=== PATIENT | male | born 2000 | race Caucasian/White ===

== ENCOUNTER 2018-05-29 21:15 | Emergency (ER) | END 2018-05-29 22:13 | disposition left against medical advice (07) ==

== ENCOUNTER 2018-05-30 05:43 | Emergency (ER) | END 2018-05-30 07:25 | disposition home or self-care (01) ==

== ENCOUNTER 2018-11-26 05:48 | Day surgery (SDC) | payer OTHER ==
[2018-11-23 15:43] VITALS: Ht 177.8 cm; Wt 95.5 kg
[~2018-11-26] VITALS: Ht 177.8 cm; Wt 95.5 kg
[2018-11-26] VITALS (13 sets, daily range): BP systolic 123–152; BP diastolic 57–89; PULSE 78–94; RESP 12–22
[~2018-11-26 05:48] MED LIST: NAPR-985 PO
[2018-11-26] MEDS ORDERED: ROPIVACAINE 0.5 % 30 ML VIAL ONE (06:55)
[2018-11-26] MEDS ORDERED: LIDOCAINE 1% (MPF) 30 ML INJ ONE (06:55)
[2018-11-26] MEDS ORDERED: BACITRACIN/POLYMYXIN 28.35 GM OINT TOP ONE (06:56)
[2018-11-26] MEDS ORDERED: morphine SULFATE/PF (10 MG/10 ML) INJ ONE (06:56)
--- NOTE | 2018-11-26 07:24 | PREAC ---
Date/Time of Note Date/Time of Note DATE: 11/26/18 TIME: 07:23 Anesthesia Eval and Record Evaluation Time Pre-Procedure Interview DATE: 11/26/18 TIME: 07:23 Age 18 Sex male NPO: 8 hrs Preoperative diagnosis left knee meniscus tear Planned procedure left knee arthroscopy and meniscus repair vs meniscectomy Past Medical History Past Medical History: None Surgery & Anesthesia Issues No known issue Meds Anticoagulation: No Beta Lilliana within 24 hr: No Reason Beta Lilliana not given: Pt. not on B-Lilliana Active Scripts Naproxen* (Naprosyn*) 500 Mg Tablet, 500 MG PO BID PRN for PAIN AND/OR INFLAMMATION, #30 TAB Prov:NOELLE HOGAN PA-C 05/30/18 Meds reviewed: Yes Allergies Coded Allergies: No Known Drug Allergy (Verified Allergy, Unknown, 05/30/18) Allergies Reviewed: Yes Labs/Studies Labs Reviewed: Reviewed by anesthesiologist test: N/A Pre-procedure Exam Last vitals Vital Signs Date Temp Pulse Resp B/P (MAP) Pulse Ox O2 O2 Flow FiO2 Time Delivery Rate 11/26/18 99.1 20 136/76 98 Room Air 07:04 (96) Airway: Adequate mouth opening, Adequate thyromental dist Mallampati: Mallampati II Teeth: Normal Lung: Normal Heart: Normal ASA Physical Status ASA physical status: 1 Emergency: None Planned Anesthetic General/MAC: ETT Planned Pain Management Parenteral pain med Pre-operative Attestations Prior to commencing anesthesia and surgery, the patient was re-evaluated, there was verification of: *The patient's identity *The results of appropriate recent lab work and preoperative vital signs *The above evaluation not changing prior to induction *Anesthetic plan, risk benefits, alternative and complications discussed with patient/family; questions answered; patient/family understands, accepts and wishes to proceed. Eduardo Joshua M.D. Nov 26, 2018 07:24
[2018-11-26] MEDS ORDERED: ROCURONIUM 50 MG INJ ONE (07:30)
[2018-11-26] MEDS ORDERED: PROPOFOL 20 ML ONE (07:30)
[2018-11-26] MEDS ORDERED: FENTAnyl 50 MCG/ML VIAL IV PRN ×3 (07:30)
[2018-11-26] MEDS ORDERED: ONDANSETRON 4 MG INJ IV PRN (07:30)
[2018-11-26] MEDS ORDERED: HYDROmorphONE 1 MG/5 ML IV SYRINGE IV PRN ×3 (07:30)
[2018-11-26] MEDS ORDERED: IPRATROPIUM (NEB) 0.5 MG/2.5 ML AMP HHN PRN (07:30)
[2018-11-26] MEDS ORDERED: MIDAZOLAM 1 MG/ML 2 ML INJ IV PRN (07:30)
[2018-11-26] MEDS ORDERED: OXYCODONE/ACETAMINOPHEN (5/325) TAB PO PRN ×2 (07:30)
[2018-11-26] MEDS ORDERED: CEFAZOLIN 1 GM INJ ONE (07:30)
[2018-11-26] MEDS ORDERED: MEPERIDINE 25 MG INJ IV PRN (07:30)
[2018-11-26] MEDS ORDERED: LABETALOL HCL 20MG INJ IV PRN (07:30)
[2018-11-26] MEDS ORDERED: DIPHENHYDRAMINE 50 MG INJ IV PRN (07:30)
[2018-11-26] MEDS ORDERED: GLYCOPYRROLATE 0.4 MG INJ ONE ×2 (07:30→08:47)
[2018-11-26] MEDS ORDERED: TRIMETHOBENZAMIDE 100 MG/ML VIAL IM PRN (07:30)
[2018-11-26] MEDS ORDERED: ALBUTEROL 0.083% (NEB) 2.5 MG/3 ML AMP HHN PRN (07:30)
[2018-11-26] MEDS ORDERED: hydrALAzine 20 MG INJ IV PRN (07:30)
[2018-11-26] MEDS ORDERED: EPHEDrine SULFATE 50 MG/5 ML SYG IV PRN (07:30)
[2018-11-26] MEDS ORDERED: MIDAZOLAM 1 MG/ML 2 ML INJ ONE (07:32)
[2018-11-26] MEDS ORDERED: ONDANSETRON 4 MG INJ ONE (07:32)
[2018-11-26] MEDS ORDERED: FENTAnyl 50 MCG/ML VIAL ONE ×2 (07:32→08:14)
[2018-11-26] MEDS ORDERED: DEXAMETHASONE 4 MG/ML 5 ML INJ ONE (07:32)
--- NOTE | 2018-11-26 07:44 | HPN ---
Date/Time of Note Date/Time of Note DATE: 11/26/18 TIME: 07:44 Interval H&P Admission Note Pt. seen H&P reviewed: No system changes RAEANN KEARNEY MD Nov 26, 2018 07:44
[2018-11-26] MEDS ORDERED: morphine 2 MG INJ IV PRN (08:00)
[2018-11-26] MEDS ORDERED: NEOSTIGMINE 10 MG INJ ONE (08:47)
[2018-11-26] MEDS ORDERED: KETOROLAC 30 MG INJ ONE (09:00)
--- NOTE | 2018-11-26 09:28 | PAC ---
Date/Time of Note Date/Time of Note DATE: 11/26/18 TIME: 09:28 Post-Anesthesia Notes Post-Anesthesia Note Last documented vital signs Vital Signs Date Temp Pulse Resp B/P (MAP) Pulse Ox O2 O2 Flow FiO2 Time Delivery Rate 11/26/18 99.1 20 136/76 98 Room Air 08:28 (96) Activity: WNL Respiratory function: WNL Cardiovascular function: WNL Mental status: Baseline Pain reasonably controlled: Yes Hydration appropriate: Yes Nausea/Vomiting absent: Yes Eduardo Joshua M.D. Nov 26, 2018 09:28
--- NOTE | 2018-11-26 09:34 | OPR ---
Date/Time of Note Date/Time of Note DATE: 11/26/18 TIME: 09:22 Operative Report Procedure Date: Nov 26, 2018 Preoperative Diagnosis Left knee lateral meniscal tear Postoperative Diagnosis Left knee lateral meniscal tear Operation/Procedure Performed Left knee arthroscopy with lateral meniscal repair Surgeon Elver Kearney MD Commercial Director None Anesthesia Type: general Anesthesiologist: Eduardo Joshua M.D. Tourniquet Time: 25 min at 250 mmhg Estimated Blood Loss: minimal Transfusion none Specimen None Grafts/Implants Ceterix 2-0 suture Complications none Pt Condition Post Procedure: stable Disposition: PACU Indications INDICATIONS: Patient is a 18-year-old male with ongoing Left knee pain. The patient has complained of having catching, clicking and locking symptoms over the lateral aspect of the knee with no relief with physical therapy or anti-infl ammatory. Patient has decided to proceed with surgery. RISK NOTE: Patient was explained the risks and benefits of the surgery in the patients [place] language, including not limited to infection, bleeding, loss of limb, loss of life, need for future surgery, risk of anesthesia, risk of injury to the blood vessels and nerves, ligaments or tendons, and risk of deep vein thrombosis. Patient understood these risks and wished to proceed with the surgery. Procedure Description The correct operative site was noted and marked in the preoperative holding area. The patient was then brought back into the operative theater, placed supine on the operative table. Left knee was examined under anesthesia. Range of motion was 0-120. There is no varus or valgus or anterior or posterior instability. There is crepitus noticed at the patellofemoral joint. Tourniquet was then placed on the operative extremity thigh non-sterilely. Patient was then given preoperative antibiotics and then prepped and draped in normal sterile fashion. A timeout was taken and all parties in the room agreed it was the correct patient, correct extremity and correct procedure. Standard anterior lateral portal was created and the knee joint was entered with a blunt tipped trocar, followed by 30 arthroscope. Inflow was achieved with a pump and the pressure maintained at approximately 50 mmHg. A routine arthroscopic surgery was performed. Suprapatella pouch was unremarkable. The undersurface of the patella showed advanced grade minimal chondromalacia The medial and lateral gutters were visualized. There were no loose bodies seen. There is an inflamed hypertrophic plica noted in the anterior and superior medial aspect of the knee. The popliteus hiatus was entered and was normal. Lateral compartment was entered and grade 1 chondromalacia was seen on the lateral tibial plateau and femoral condyle. There was a posterior horn lateral meniscal tear that was flipped under the posterior horn of the lateral meniscus. There is also noted to be a horizontal cleavage tear of the mid body extending to the anterior and posterior horn. The posterior horn lateral meniscus tear was debrided and treated with both biters and a shaver to create a firm stable meniscal rim. The cleavage tear was treated with a meniscal rasp and then repaired it with a cerclage-like repair with a Ceterix 2-0 meniscal repair suture. Chondroplasty was then carried out along the weightbearing aspect of the lateral femoral condyle and lateral tibial plateau taking care to remove any loose articular cartilage debris and preserved functional articular cartilage Scope was then brought into the intercondylar notch and an anteromedial portal was made. Shaver was brought into the knee and small amount of fat pad and scar tissue was initially gently debrided. The anterior cruciate ligament was intact and probed. The knee was brought into a valgus position and the medial compartment was entered. The articular surface of the medial femoral condyle and medial tibial plateau revealed no chondromalacia. There was no tear to the medial meniscus The lateral compartment was reentered and the loose chondral debris was debrided with motorized shaver. Attention was then directed back to the patella femoral joint and a chondroplasty was carried out along the weightbearing aspect of the trochlea and undersurface of the patella to again remove loose debris and maintain functional active articular cartilage. The knee was then irrigated with additional 2 L of lactated Ringers solution. Excess fluid was then drained. Range of motion was then attempted showing 0- 125 degrees of motion The portal sites were closed with 4-0 Monocryl and Steri-Strips and dressed with Xeroform and triple antibiotic ointment. The knee was then injected with 20 cc of 0.5% plain ropivacaine. A dry sterile dressing was then applied, followed by a compressive bulky soft bandage and an MARY Wrap. At the completion of the surgery patient had palpable pulses, soft arms and brisk cap refill. The patient tolerated the procedure well and was taken to the PACU without any complications. A knee brace was placed on the knee with the knee locked in full extension All sponge and needle counts were correct. Patient will begin pain medicine and 48 hours of antibiotics as well as aspirin 81 mg for the duration of 4 weeks postoperatively ELVER KEARNEY MD Nov 26, 2018 09:34
== END 2018-11-26 10:35 | disposition home or self-care (01) ==
LOC: SDS 05:48
PROVIDERS: ATTEND Orthopaedic Surgery
DX: M23.252 Derangement of posterior horn of lateral meniscus due to old tear or injury, left knee (principal)
CPT/HCPCS: 29880; 82306; J0690; J1100; J1170; J1885; J2250; J2405; J2710; J2795; J3010; Z7512; Z7610; J2274